=== PATIENT | female | born 1935 | race Caucasian/White ===

== ENCOUNTER 2016-09-08 10:55 | Emergency (ER) | payer MEDICARE, BC ==
--- NOTE | 2016-09-08 11:28 | UC ---
Complaint Female HPI - HPI Summary HPI Summary: complaint of increase in frequency and urgency for approx 1 week last night had to urinate every hour difficult to get he urine out at first slight lower back pain denies fever, abdominal pain denies blood in urine, foul smell taking probiotic and eating yogurt without effect - History Of Current Complaint Stated Complaint: URINARY Time Seen by Provider: 09/08/16 11:27 Hx Obtained From: Patient - Allergies/Home Medications Allergies/Adverse Reactions: Allergies Allergy/AdvReac Type Severity Reaction Status Date / Time No Known Allergies Allergy Verified 09/08/16 11:34 Home Medications: Home Medications Coq10 With Red Rice 1 tab PO BID 09/08/16 [History Confirmed 09/08/16] Digoxin TAB* [Lanoxin TAB*] 0.125 mg PO DAILY 09/08/16 [History Confirmed ] Docusate Sodium [Stool Softener] 100 mg PO BID 09/08/16 [History Confirmed 09/08] Furosemide TAB* [Lasix TAB*] 20 mg PO DAILY PRN 09/08/16 [History Confirmed 04/26] Pyridoxine TAB* [Vitamin B6 TAB*] 100 mg PO DAILY 09/08/16 [History Confirmed ] Rivaroxaban TAB(*) [Xarelto 15 mg(*)] 15 mg PO DAILY 09/08/16 [History Confirmed 09/08/16] Tiotropium Dora Monohydrate [Spiriva Respimat] 2 puff IN DAILY 09/08/16 [ History Confirmed 09/08/16] Vitamin E [Natural Vitamin E] 400 unit PO QAM 09/08/16 [History Confirmed ] PMH/Surg Hx/FS Hx/Imm Hx Previously Healthy: Yes - ovarian cancer, - Surgical History Surgical History: Yes Surgery Procedure, Year, and Place: 1972 HYSTERECTOMY. R ankle surgery - Social History Alcohol Use: None Substance Use Type: None Smoking Status (MU): Former Smoker Review of Systems Constitutional: Fatigue Skin: Negative Eyes: Negative ENT: Negative Respiratory: Negative Cardiovascular: Negative Gastrointestinal: Negative Genitourinary: Frequency, Urgency Motor: Negative Neurovascular: Negative Musculoskeletal: Negative Neurological: Negative Psychological: Negative All Other Systems Reviewed And Are Negative: Yes Physical Exam Triage Information Reviewed: Yes Appearance: No Pain Distress, Well-Nourished Vital Signs Reviewed: Yes Eyes: Positive: Conjunctiva Clear ENT: Positive: Pharynx normal, TMs normal, Other: - both canals blocked with ceruemen, TMs visualized after irigation Neck: Positive: No Lymphadenopathy Respiratory: Positive: Lungs clear, Normal breath sounds, No respiratory distress, No accessory muscle use Cardiovascular: Positive: RRR, No Murmur, Pulses Normal Abdomen Description: Positive: Nontender, No Organomegaly, Soft. Negative: CVA Tenderness (R), CVA Tenderness (L), Distended, Guarding Bowel Sounds: Positive: Present Musculoskeletal: Positive: Edema @ - @x in ankles Neurological: Positive: Alert Psychological Exam: Normal Skin Exam: Normal Complaint Female Dx - Differential Dx/Diagnosis Provider Diagnoses: UTI, cerumen impaction Discharge - Discharge Plan Condition: Stable Disposition: HOME Prescriptions: Nitrofurantoin Macrocrystals* [Macrodantin*] 100 mg PO BID #10 cap Patient Education Materials: Urinary Tract Infection in Women (ED), Cerumen Impaction (ED) Referrals: Honorio Jack MD [Primary Care Provider] - Additional Instructions: Please start antibiotic as directed Increase fluids and rest Take acetaminophen for fever or pain Please review your discharge instructions. If your symptoms do not improve please call your primary care provider or return to urgent care.
[2016-09-08 11:31] VITALS: BP 126/43
== END 2016-09-08 12:40 | disposition home or self-care (01) ==
LOC: UCCORT 10:55
DX: N39.0 Urinary tract infection, site not specified (principal); H61.23 Impacted cerumen, bilateral; Z79.01 Long term (current) use of anticoagulants; Z85.43 Personal history of malignant neoplasm of ovary; Z87.891 Personal history of nicotine dependence
CPT/HCPCS: 81003; 87077; 87086; 87186; 99213; G0463